=== PATIENT | male | born 1950 | race Caucasian/White ===

== ENCOUNTER 2020-12-07 10:34 | Outpatient (CLI) | payer MEDICARE ==
[2020-12-07] MEDS ORDERED: TAMS-11 PO (11:02)
[2020-12-07] MEDS ORDERED: LOSA25TA25 PO (11:02)
[2020-12-07 11:49] LABS: ALANINE AMINOTRANSFERASE 30 U/L (12-78); ALBUMIN 3.9 g/dL (3.4-5.0); ANION GAP 4 mmol/L (5-15); CALCIUM 9.3 mg/dL (8.5-10.1); CHLORIDE 108 mmol/L (98-107); CREATININE 0.63 mg/dL (0.7-1.3)
[2020-12-07 11:51] LABS: ALKALINE PHOSPHATASE 48 U/L (45-117); BILIRUBIN,TOTAL 0.5 mg/dL (0.2-1.0); TOTAL PROTEIN 7.4 g/dL (6.4-8.2)
== END 2020-12-07 23:59 | disposition home or self-care (01) ==
LOC: STAR 10:34
PROVIDERS: ATTEND Orthopaedic Surgery
DX: Z01.818 Encounter for other preprocedural examination (principal); G95.9 Disease of spinal cord, unspecified; I44.7 Left bundle-branch block, unspecified
CPT/HCPCS: 36415; 80053; 87081; 93005